=== PATIENT | female | born 1990 | race Two or more races ===

== ENCOUNTER → 2018-07-16 | Emergency (ER) | payer OTHER ==
[~2018-07-16] VITALS: Ht 165.1 cm; Wt 68.9 kg
[~2018-07-16] MED LIST: OSEL75CA PO; ZYNCOF 20-400120 ML PO
== END | disposition home or self-care (01) ==
LOC: ER 04:24
DX: J11.1 Influenza due to unidentified influenza virus with other respiratory manifestations (principal); R50.9 Fever, unspecified

== ENCOUNTER 2020-11-29 12:18 | Emergency (ER) | payer OTHER ==
[~2020-11-29] VITALS: Ht 165.1 cm; Wt 72.6 kg
[2020-11-29] MEDS ORDERED: DIALYVITE 800-1 EACH PO (12:33)
== END 2020-11-29 15:46 | disposition home or self-care (01) ==
LOC: ER 12:18
DX: O03.9 Complete or unspecified spontaneous abortion without complication (principal); Z3A.01 Less than 8 weeks gestation of pregnancy

== ENCOUNTER 2021-11-26 14:45 | Inpatient (IN) | payer OTHER ==
[~2021-11-26] VITALS: Ht 165.1 cm; Wt 3.2 kg
[~2021-11-26 14:45] MED LIST changes: +DIALYVITE 800-1 EACH PO
[2021-11-30] MEDS ORDERED: PRENATAL TABLE1 EAC1 (16:54)
[2021-12-04] MEDS ORDERED: KETO10TA2 PO (09:40)
[2021-12-04] MEDS ORDERED: OXYC1TAB9 PO (09:40)
== END 2021-12-04 11:11 | disposition home or self-care (01) | DRG 788 ==
LOC: LDR 11-30 15:31 → OB/GYN 11-30 15:31 → O/R 12-02 12:14 → OB/GYN 12-02 12:15
PROVIDERS: ADMIT Obstetrics & Gynecology; ATTEND Obstetrics & Gynecology
PROC: 3E0P7VZ Introduction of Hormone into Female Reproductive, Via Natural or Artificial Opening (ICD-10-PCS; 2021-11-30)
PROC: 4A1HXCZ Monitoring of Products of Conception, Cardiac Rate, External Approach (ICD-10-PCS; 2021-11-30)
PROC: 3E033VJ Introduction of Other Hormone into Peripheral Vein, Percutaneous Approach (ICD-10-PCS; 2021-12-01)
PROC: 10D00Z1 Extraction of Products of Conception, Low, Open Approach (ICD-10-PCS; principal; 2021-12-01 20:45)
DX: O61.0 Failed medical induction of labor (principal); O33.8 Maternal care for disproportion of other origin; O62.8 Other abnormalities of forces of labor; Z3A.39 39 weeks gestation of pregnancy; Z37.0 Single live birth; Z20.822 Contact with and (suspected) exposure to COVID-19